=== PATIENT | female | born 1970 | race Caucasian/White ===

== ENCOUNTER 2016-11-03 06:32 | Day surgery (SDC) | payer OTHER ==
[~2016-11-03 06:32] MED LIST: FENTANYL 250 MCG/5 ML AMP IV PRN; LACTATED RINGERS 1,000 ML IV SCH; MIDAZOLAM HCL 5 MG/5 ML VIAL IV PRN
[2016-11-03] MEDS ORDERED: IV START KIT ONE (06:53)
--- NOTE | 2016-11-07 13:27 | SURGPATH ---
[facility] [address] [place] [id number] Patient Name: LOREN DENT MR#: [id number] : 1970 Gender: F Specimen #: [id number] Collected: 11/03/2016 Received: 11/06/2016 Reported: 11/07/2016 Submitting Phys: DENEEN MOHR Copy To Phys: [facility] EVON THOM[facility] Clinical History / Pre-Operative Diagnosis: Abnormal CT scan; bloody diarrhea Specimen Source / Surgical Procedure Performed: #1-cecal biopsy; #2-sigmoid biopsy Interpretation: 1. CECUM, BIOPSY: - MILD CHRONIC ACTIVE COLITIS. - NO EVIDENCE OF GRANULOMAS, DYSPLASIA, OR MALIGNANCY. 2. COLON, SIGMOID, BIOPSY: - MODERATE CHRONIC ACTIVE COLITIS. - NO EVIDENCE OF GRANULOMAS, DYSPLASIA, OR MALIGNANCY. Electronically Signed Out Melo Kelly M.D., Ph.D. Gross Description: #1 The specimen is received in a formalin filled container labeled with the patient's name and "cecal biopsy". Two jin-bernstein biopsies are 0.2 and 0.4 cm. Totally embedded in cassette #1. #2 The specimen is received in a formalin filled container labeled with the patient's name and "sigmoid biopsy". Three bernstein biopsies are 0.2, 0.2 and 0.3 cm. Totally embedded in cassette #2. Taylor Moore Microscopic Description: 1. Examination of multiple levels from the cecum biopsy shows a single fragment of colonic mucosa with expansion of the lamina propria by a mixed inflammatory cell infiltrate consisting of lymphocytes, plasma cells, eosinophils, and neutrophils. Neutrophils within the glandular epithelium are seen. No crypt abscesses are seen. There is no evidence of granulomas, dysplasia, or malignancy. 2. Examination of multiple levels from the sigmoid colon biopsy shows multiple fragments of colonic mucosa with expansion of the lamina propria by a mixed inflammatory cell infiltrate consisting of leukocytes, plasma cells, eosinophils, and neutrophils. Neutrophils within the glandular epithelium are seen. No crypt abscesses are seen. Architectural distortion characterized by crypt dropout and loss of mucin are seen. There is no evidence of granulomas, dysplasia, or malignancy. 1: 16308 2: 80588 K52.9
== END 2016-11-03 08:55 | disposition home or self-care (01) ==
LOC: SDC 06:32
PROVIDERS: ATTEND Internal Medicine Gastroenterology
PROC: 0DBH8ZX Excision of Cecum, Via Natural or Artificial Opening Endoscopic, Diagnostic (ICD-10-PCS; principal; 2016-11-03)
PROC: 0DBN8ZX Excision of Sigmoid Colon, Via Natural or Artificial Opening Endoscopic, Diagnostic (ICD-10-PCS; 2016-11-03)
DX: K51.90 Ulcerative colitis, unspecified, without complications (principal)
CPT/HCPCS: 45380; J3010; J2250; J7120

== ENCOUNTER 2016-11-07 17:59 | Observation (INO) | payer OTHER ==
[2016-11-07 18:17] VITALS: BMI 17.5
[2016-11-07] MEDS ORDERED: BLISTEX LIPSTICK 1 EACH TP PRN (18:56)
[2016-11-07] MEDS ORDERED: ACETAMINOPHEN 325 MG TABLET PO PRN (18:56)
[2016-11-07] MEDS ORDERED: SODIUM CHLORIDE 0.9% 100 ML IV PRN (18:56)
[2016-11-07] MEDS ORDERED: MENTHOL/CETYLPYRD 1 EACH LOZENGE PO PRN (18:56)
[2016-11-07] MEDS ORDERED: ONDANSETRON 4 MG/2ML 2 ML VIAL IV PRN (18:59)
[2016-11-07] MEDS: SODIUM CHLORIDE 0.9% 1,000 ML IV SCH (19:34)
--- NOTE | 2016-11-07 19:57 | HP ---
MILA DENT REJI DATE OF ADMISSION: November 07, 2016 CHIEF COMPLAINT: Abdominal pain and diarrhea, new diagnosis of ulcerative colitis. HISTORY OF PRESENT ILLNESS: Mila is a 46-year-old female who was otherwise healthy up until this last month or so. In the last month, she has had onset of diarrhea that is occasionally bloody. Initially this was up around 20 times a day. It was associated with a fever up to 103 initially, and she has had intermittent fevers ever since. She has had crampy abdominal pain along with this as well. She has been followed by her regular physician, Dr. Browne, who has worked her up over the last month including a CT scan done just last week which showed pancolitis. She was referred to Dr. Akers and underwent a colonoscopy on Sunday of last week, November 03, 2016. This did show again pancolitis with a presumptive diagnosis of ulcerative colitis. She was subsequently started on azathioprine and balsalazide over the last couple of days. However, her symptoms have persisted. She is continuing to have 10 to 12 episodes of diarrhea per day with occasional blood. She is still having rather severe crampy abdominal pain. She has lost about 19 pounds over the last two weeks. She is still having some difficulty getting adequate food in as every time she eats, she has more diarrhea. Her regular physician, Dr. Browne, contacted me this afternoon to facilitate a direct admit for supportive care. In addition, she has not had any blood work in the last week or two, and so we will escalate her therapy as necessary based on the results of her workup and further discussions with her and Dr. Akers. REVIEW OF SYSTEMS: As noted above, otherwise negative. PAST MEDICAL HISTORY: 1. Ulcerative colitis diagnosed just last week on colonoscopy. 2. She is a former premature baby. PAST SURGICAL HISTORY: 1. She had abdominal wall hernia repair done at 20 years old. The hernia was a result of her being significantly premature. 2. Foot surgery at 12 years old. 3. Colonoscopy, November 03, 2016 showing pancolitis consistent with ulcerative colitis as noted above. ALLERGIES: NONE. CURRENT MEDICATIONS: 1. Up until last week she was on no medications. 2. On Sunday she was started on balsalazide disodium 750 mg tablets two orally twice daily just increased two orally three times daily within the last day or so. 3. Azathioprine 200 mg orally in the morning. 4. Hyoscyamine 0.125 mg orally twice daily. SOCIAL HISTORY: She is . She and her have two teenage boys. 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 No alcohol, tobacco or drug use. FAMILY HISTORY: Father had diabetes and coronary artery disease. Mother had rhythm problems with her heart and has a pacer. PHYSICAL EXAMINATION: VITAL SIGNS: Vital signs are stable. She is afebrile. GENERAL: This is a thin female. She is alert and pleasant, smiling though she does appear borderline cachectic. She is in no acute distress otherwise. HEENT: Normocephalic, atraumatic. Tympanic membranes are clear. Oropharynx is moist. Sclera are anicteric. There are no lesions. NECK: Is supple, no jugular venous distention or lymphadenopathy. LUNGS: Clear. HEART: Regular. ABDOMEN: She does have hyperactive bowel tones. She is diffusely mildly tender but no true rebound, no guarding, no masses. EXTREMITIES: With no edema. SKIN: Clear with no rashes. LABORATORIES: Are pending. ASSESSMENT: New diagnosis of ulcerative colitis. Her symptomatology puts her in the severe category. PLAN: 1. We will obtain a lab workup right now and most likely we will consider steroid therapy given her failure to respond to the current regimen and the nature of her symptoms. 2. Supportive care otherwise. 3. We will attempt to contact her weight inspector, Dr. Akers, to coordinate care with him. 4. We will initiate nutrition consults for tomorrow. 5. Deep venous thrombosis prophylaxis is not indicated as the patient is fully ambulatory and I anticipate she will be in the hospital less than 48 hours. 6. Further care as dictated by her clinical course. cc: Zayda Browne M.D. Mike Akers M.D.
[2016-11-07 20:47] LABS: ABSOLUTE NEUTROPHIL COUNT 7.4 K/mm3 (1.8-7.7); BASO # 0.1 K/mm3 (0.0-0.2); BASO % 1.1 % (0.2-1.0); EOS # 0.2 (0.0-0.5); EOS % 1.7 % (0.9-2.9); HEMATOCRIT 43.5 % (37.0-47.0); HEMOGLOBIN 13.9 gm/l (12.0-16.0); IMM NEUT% 0.4 % (0-1); LYMPH # 1.2 (1.0-4.8); LYMPH % 12.1 % (15-45); MEAN CORPUSCULAR HEMOGLOBIN 27.5 pg (27.0-31.0); MEAN PLATELET VOLUME 9.4 fl (7.4-10.4); MONO # 0.9 (0.0-0.8); MONO % 8.7 % (4-12); PLATELET COUNT 949 K/mm3 (130-400); RED CELL DISTRIBUTION WIDTH 13.1 % (11.5-14.5)
[2016-11-07] MEDS ORDERED: METHYLPRED SOD SUCCINATE 40 MG VIAL IV ONE (21:37)
[2016-11-07 21:47] LABS: ALB/GLOB RATIO 0.9 (>1.0); C-REACTIVE PROTEIN 5.5 mg/dl (<1.0); CALCIUM 8.6 mg/dL (8.6-10.3)
[2016-11-07 22:27] LABS: NEUTROPHILS 66 % (43-75); TOTAL CELLS COUNTED 100
[2016-11-07 22:28] LABS: BAND 12 % (0-10); BASOPHIL 1 % (0-1); EOSINOPHIL 4 % (1-3); LYMPHOCYTE 14 % (15-45); MONOCYTE 3 % (4-12); PLATELET ESTIMATE INCREASED (NORMAL)
[2016-11-07 22:57] LABS: URINE BILIRUBIN NEGATIVE (NEGATIVE); URINE BLOOD 1+ (NEGATIVE); URINE GLUCOSE (UA) NEGATIVE (NEGATIVE); URINE LEUKOCYTE ESTERASE NEGATIVE (NEGATIVE); URINE NITRITE NEGATIVE (NEGATIVE); URINE PROTEIN TRACE (NEGATIVE); URINE UROBILINOGEN NORMAL (0-1 mg/dl)
[2016-11-07 22:59] LABS: URINE APPEARANCE CLEAR; URINE COLOR YELLOW
[2016-11-07 23:11] LABS: URINE BACTERIA 1+; URINE EPITHELIAL CELLS MANY /hpf; URINE MUCUS 1+; URINE WBC 0-1 /hpf
[2016-11-08] MEDS: METHYLPRED SOD SUCCINATE 40 MG VIAL IV SCH ×2 (00:32→06:10)
[2016-11-08] MEDS: SODIUM CHLORIDE 0.9% 1,000 ML IV SCH (03:43)
[2016-11-08 08:28] LABS: HEMATOCRIT 39.8 % (37.0-47.0); HEMOGLOBIN 12.6 gm/l (12.0-16.0); MEAN CELL VOLUME 87.1 fl (81.0-99.0); MEAN CORPUSCULAR HEMOGLOBIN 27.6 pg (27.0-31.0); MEAN CORPUSCULAR HGB CONC 31.7 g/dl (33.0-37.0); RED CELL DISTRIBUTION WIDTH 13.2 % (11.5-14.5)
[2016-11-08 08:54] LABS: ALB/GLOB RATIO 0.9 (>1.0); ALBUMIN 2.8 gm/dL (3.5-5.7); CALCIUM 8.5 mg/dL (8.6-10.3)
[2016-11-08] MEDS ORDERED: PREDNISONE 20 MG TABLET PO ONE (11:35)
--- NOTE | 2016-11-08 12:48 | DS ---
Mila Capellan ADMIT DATE: 11/07/2016 DISCHARGE DATE: 11/08/2016 ADMIT DIAGNOSES: 1. Ulcerative colitis flare (new diagnosis within the last week). 2. Dehydration secondary to above. DISCHARGE DIAGNOSES: 1. Ulcerative colitis flare (new diagnosis within the last week). 2. Dehydration secondary to above. ADMIT HISTORY AND PHYSICAL: Please see my dictated note for details. Briefly, Ms. Capellan is a 46-year-old female who was otherwise healthy up until this last month or so at which point she had onset of abdominal pain and frequent diarrhea greater than 20 times a day. She has had occasional fevers, suffered weight loss, etc. Please see my history and physical for further details. She was diagnosed with ulcerative colitis just this last week with a CT scan showing thapa colitis on a subsequent colonoscopy on 11/03/2016 again showing pain colitis. She was started on balsalazide and azathioprine within the last few days prior to this admission, however, three days prior to this admission she continued severe symptoms with diarrhea greater than 10 to 12 times a day with occasional blood, continued weight loss, continued severe abdominal pain, etc. Her regular physician contacted me to facilitate direct admission for the purpose of supportive care and initiate more aggressive treatment as necessary. HOSPITAL COURSE: She was admitted. Lab work was consistent with significant inflammation with a platelet count elevated to 949 and ESR elevated at 28, and a CRP elevated at 5.5. She was also felt to be a bit dehydrated. Her electrolytes otherwise showed a low sodium, but otherwise for the most part unremarkable. She was admitted and rehydrated with IV fluids overnight. We did initiate Solu-Medrol therapy and initiated nutrition counseling. By morning of discharge she was feeling a bit better. Her diarrhea does seem to be slowing down already. She has more energy after being rehydrated and is able to tolerate oral intake better than she has over the last few days. We elected to discharge her home with plans for close outpatient follow up. DISCHARGE MEDICATIONS: Prednisone 20 mg tablets 2 by mouth daily to start with to be adjusted as per Dr. Akers. She has an appointment with him on Sunday. She understands that the prednisone should not be discontinued abruptly. All other medications as prior to admit as follows: 1. Balsalazide 750 mg tablets two tablets by mouth twice daily. 2. Azathioprine 200 mg by mouth daily. 3. Hyoscyamine as needed. DISCHARGE FOLLOW UP: Will be with Dr. Mike Akers as scheduled on 11/13/2016. Follow up with Dr. Zayda Marinelli as needed. JOB: [id number] CC: Dr. Mike Marinelli
[2016-11-08 13:49] VITALS: BP 113/82
== END 2016-11-08 14:00 | disposition home or self-care (01) ==
LOC: MS 17:59
PROVIDERS: ADMIT Family Medicine; ATTEND Family Medicine
DX: K51.90 Ulcerative colitis, unspecified, without complications (principal); E86.0 Dehydration